=== PATIENT | female | born 1955 | race African-American/Black ===

== ENCOUNTER 2019-04-22 02:56 | Emergency (ER) | payer MEDICARE ==
[~2019-04-22] VITALS: Ht 157.5 cm; Wt 86.2 kg
--- NOTE | 2019-04-22 03:44 | NUR ---
BIB SELF. AAOX3. NAD, BREATHING EVEN AND UNLABORED. AMBULATORY. C/O BILAT KNEE PAIN 04/02 WHICH STARTED BACK IN THANKSGIVING AFTER SUSTAINING A FALL. PT IS ALSO COMPLAINING OF R SHOULDER PAIN WHICH ALSO STARTED THE SAME TIME THE KNEE. PAIN IS NOT PRESENT AT THIS TIIEM ON SHOULDER, ROM INTACT. TO ER BED 1. AWAITING FOR MD CROWE AND ORDERS.
[2019-04-22] MEDS ORDERED: HYDROCODONE/APAP 5/325MG 1 EACH TABLET PO ONE (04:00)
[2019-04-22] MEDS ORDERED: HYDROCODONE/APAP 5/325MG 1 EACH TABLET ONE (04:04)
--- NOTE | 2019-04-22 04:08 | NUR ---
XRAY AT BEDSIDE
--- NOTE | 2019-04-22 04:29 | NUR ---
PT GIVEN FOOD. SANDWHICH AND JUICE
[2019-04-22] MEDS ORDERED: CLONIDINE HCL 0.1 MG TABLET ONE (04:52)
--- NOTE | 2019-04-22 04:54 | NUR ---
BP NOTED @ 198/110. MADE AWARE. VERBAL ORDERS RECEIVED TO GIVE PT CLONIDINE 0.1MG ORALLY X1 NOW.
[2019-04-22] MEDS ORDERED: CLONIDINE HCL 0.1 MG TABLET PO ONE (05:00)
[2019-04-22 05:22] VITALS: BP 162/98
--- NOTE | 2019-04-22 05:23 | NUR ---
Patient discharged to home in stable condition. Written and verbal after care instructions given. Patient verbalizes understanding of instruction.Pt ambulatory with a steady gait
--- NOTE | 2019-04-22 05:23 | NUR ---
BP NOTED WENT DOWN TO 162/98 MD. MADE AWARE.
== END 2019-04-22 05:34 | disposition home or self-care (01) ==
LOC: EDBD 03:05 → ER 03:05
DX: S83.8X1A Sprain of other specified parts of right knee, initial encounter (principal); I10 Essential (primary) hypertension; F17.210 Nicotine dependence, cigarettes, uncomplicated; Z60.2 Problems related to living alone; W18.39XA Other fall on same level, initial encounter; Y93.89 Activity, other specified; Y92.89 Other specified places as the place of occurrence of the external cause; Y99.8 Other external cause status
CPT/HCPCS: 73564-TC